=== PATIENT | female | born 1935 | race African-American/Black ===

== ENCOUNTER 2020-04-09 18:42 | Inpatient (IN) ==
[2020-04-09] MEDS ORDERED: K-DUR TAB 20 MEQ PO SCH (21:00)
[2020-04-09 21:41] LABS: BASOPHILS % (AUTO) 0.2 % (0.2-1.0); EOSINOPHILS % (AUTO) 0.3 % (0.9-2.9); HEMATOCRIT 24.3 % (36.0-47.0); HEMOGLOBIN 8.4 g/dL (12.0-16.0); LYMPHOCYTES # (AUTO) 1.2 X10^3/uL (1.3-2.9); LYMPHOCYTES % (AUTO) 14.8 % (21.0-51.0); MEAN CORPUSCULAR HEMOGLOBIN 26.9 pg (27.0-34.0); MEAN CORPUSCULAR HGB CONC 34.3 g/dL (33.0-35.0); MEAN CORPUSCULAR VOLUME 78.4 fL (80.0-100.0); MEAN PLATELET VOLUME 7.4 fL (7.4-11.0); MONOCYTES # (AUTO) 0.4 x10^3/uL (0.3-0.8); MONOCYTES % (AUTO) 5.7 % (0.0-13.0); NEUTROPHILS # (AUTO) 6.2 x10^3/uL (2.2-4.8); PLATELET COUNT 349 X10^3/uL (150.0-450.0); RED CELL DISTRIBUTION WIDTH 20.7 % (11.6-16.5); WHITE BLOOD COUNT 7.8 X10^3/uL (3.6-10.0)
[2020-04-09 21:43] LABS: CALCIUM 8.1 mg/dL (8.5-10.1); CARBON DIOXIDE 17.9 mmol/L (21-32); COR CA(FOR HYPOALB) 9.7 mg/dL (8.5-10.1); CREATININE 2.84 mg/dL (0.55-1.02); MAGNESIUM 1.6 mg/dL (1.7-2.9); TOTAL PROTEIN 6.4 g/dL (6.4-8.2)
[2020-04-09 21:46] LABS: ANISOCYTOSIS 1+; HYPOCHROMASIA SLIGHT; PLATELET MORPHOLOGY COMMENT NORMAL (NORMAL)
[2020-04-09] MEDS: NS + KCL 40 MEQ/L 1,000 ML IV SCH (22:00)
[2020-04-09] MEDS ORDERED: PHARMACY CONSULT LTC MEDICATIONS XX SCH (23:00)
[2020-04-09] MEDS: MAGNESIUM SULFATE 1 GRAM/100 mL PREMIX 1 GM/100 ML BAG IV PRN (23:10)
[2020-04-09] MEDS: K-DUR TAB 20 MEQ PO SCH (23:11)
--- NOTE | 2020-04-09 23:26 | RAD ---
HISTORYHYPOKALEMIASTUDYCHEST, 1 VIEWCOMPARISONNoneFINDINGSThe trachea is midline. The cardiac silhouette is mildly enlarged with central pulmonary vascular congestion. The lungs are clear without focal infiltrate or effusion. Moderate multilevel spondylosis. Evidence of prior cholecystectomy. Fusion hardware of the lower cervical spine.IMPRESSIONMild cardiomegaly and central pulmonary vascular congestion.Status post cholecystectomy.Electronically signed by: Jacque Parish (Apr 09, 2020 23:25:40)
[2020-04-10] MEDS: MAGNESIUM SULFATE 1 GRAM/100 mL PREMIX 1 GM/100 ML BAG IV PRN (02:30)
[2020-04-10] MEDS: K-DUR TAB 20 MEQ PO SCH ×2 (02:30→02:43)
[2020-04-10 06:22] LABS: BILIRUBIN,URINE NEGATIVE (NEGATIVE); BLOOD/HEMOGLOBIN,URINE 3+ (NEGATIVE); GLUCOSE, URINE NEGATIVE (NEGATIVE); KETONES,URINE NEGATIVE (NEGATIVE); LEUKOCYTE ESTERASE ,URINE 3+ (NEGATIVE); NITRITES,URINE NEGATIVE (NEGATIVE); PROTEIN,URINE 2+ (NEGATIVE); UROBILINOGEN,URINE NORMAL (NORMAL)
[2020-04-10 06:30] LABS: ALBUMIN 1.7 g/dL (3.4-5.0); CALCIUM 7.4 mg/dL (8.5-10.1); CARBON DIOXIDE 18.4 mmol/L (21-32); COR CA(FOR HYPOALB) 9.2 mg/dL (8.5-10.1); CREATININE 2.75 mg/dL (0.55-1.02); MAGNESIUM 2.6 mg/dL (1.7-2.9); TOTAL PROTEIN 5.6 g/dL (6.4-8.2)
[2020-04-10 06:38] LABS: EOSINOPHILS % (AUTO) 0.6 % (0.9-2.9); HEMATOCRIT 20.2 % (36.0-47.0); LYMPHOCYTES # (AUTO) 1.1 X10^3/uL (1.3-2.9); MEAN CORPUSCULAR HEMOGLOBIN 26.8 pg (27.0-34.0); MEAN PLATELET VOLUME 7.4 fL (7.4-11.0); RED BLOOD COUNT 2.56 X10^6/uL (3.5-5.4); RED CELL DISTRIBUTION WIDTH 20.7 % (11.6-16.5)
[2020-04-10 06:45] LABS: APPEARANCE,URINE HAZY (CLEAR); BACTERIA,URINE 1+ /HPF (NEGATIVE); COLOR,URINE YELLOW (YELLOW); MUCUS,URINE FEW /HPF (NEGATIVE); SQUAMOUS EPITHELIAL CELL,UR RARE /HPF (NEGATIVE)
[2020-04-10 06:54] LABS: BASOPHILS % (AUTO) 0.1 % (0.2-1.0); LYMPHOCYTES % (AUTO) 16.6 % (21.0-51.0); MEAN CORPUSCULAR HGB CONC 33.9 g/dL (33.0-35.0); MONOCYTES # (AUTO) 0.3 x10^3/uL (0.3-0.8); NEUTROPHILS # (AUTO) 5.3 x10^3/uL (2.2-4.8); NEUTROPHILS % (AUTO) 77.7 % (42.0-75.0); PLATELET COUNT 305 X10^3/uL (150.0-450.0); WHITE BLOOD COUNT 6.9 X10^3/uL (3.6-10.0)
[2020-04-10 06:57] LABS: HEMOGLOBIN 6.8 g/dL (12.0-16.0)
[2020-04-10 07:21] LABS: ANISOCYTOSIS 1+; HYPOCHROMASIA 1+; PLATELET MORPHOLOGY COMMENT NORMAL (NORMAL)
[2020-04-10 09:29] LABS: LACTIC ACID 1.5 mmol/L (0.4-2.0)
[2020-04-10 10:47] LABS: HEMATOCRIT 23.9 % (36.0-47.0); HEMOGLOBIN 8.2 g/dL (12.0-16.0)
[2020-04-10 16:36] LABS: HEMATOCRIT 20.8 % (36.0-47.0)
[2020-04-10 16:40] LABS: BILIRUBIN,URINE NEGATIVE (NEGATIVE); BLOOD/HEMOGLOBIN,URINE 4+ (NEGATIVE); GLUCOSE, URINE NEGATIVE (NEGATIVE); KETONES,URINE NEGATIVE (NEGATIVE); LEUKOCYTE ESTERASE ,URINE 3+ (NEGATIVE); NITRITES,URINE NEGATIVE (NEGATIVE); PROTEIN,URINE 2+ (NEGATIVE); UROBILINOGEN,URINE NORMAL (NORMAL)
[2020-04-10 16:55] LABS: APPEARANCE,URINE CLEAR (CLEAR); BACTERIA,URINE TRACE /HPF (NEGATIVE); COLOR,URINE YELLOW (YELLOW); SQUAMOUS EPITHELIAL CELL,UR RARE /HPF (NEGATIVE)
[2020-04-10 18:13] LABS: FREE T4 (FREE THYROXINE) 1.12 ng/dL (0.76-1.46); TSH (3RD GENERATION) 3.479 uIU/mL (0.358-3.74)
[2020-04-10] MEDS: FERROUS GLUCONATE PO SCH (20:25)
[2020-04-10] MEDS: ROCEPHIN VIAL 1 GRAM 1 G in NS 100 ML IV + SPIKE MINIBAG* 100 ML IV SCH (20:25)
[2020-04-10 20:42] VITALS: BMI 15.3
[2020-04-10] MEDS ORDERED: PATIENT'S HOME MEDICATION (Ferrous Sulfate 325 MG) PO SCH (21:00)
[2020-04-10 22:15] LABS: HEMATOCRIT 21.9 % (36.0-47.0); HEMOGLOBIN 7.5 g/dL (12.0-16.0)
[2020-04-10] MEDS: NS + KCL 40 MEQ/L 1,000 ML IV SCH (23:00)
[2020-04-11 04:26] LABS: BASOPHILS % (AUTO) 0.6 % (0.2-1.0); EOSINOPHILS % (AUTO) 0.5 % (0.9-2.9); HEMATOCRIT 21.9 % (36.0-47.0); HEMOGLOBIN 7.4 g/dL (12.0-16.0); LYMPHOCYTES # (AUTO) 1.3 X10^3/uL (1.3-2.9); LYMPHOCYTES % (AUTO) 17.4 % (21.0-51.0); MEAN CORPUSCULAR HEMOGLOBIN 26.9 pg (27.0-34.0); MEAN CORPUSCULAR HGB CONC 33.9 g/dL (33.0-35.0); MEAN CORPUSCULAR VOLUME 79.2 fL (80.0-100.0); MEAN PLATELET VOLUME 7.1 fL (7.4-11.0); MONOCYTES # (AUTO) 0.5 x10^3/uL (0.3-0.8); MONOCYTES % (AUTO) 6.9 % (0.0-13.0); NEUTROPHILS # (AUTO) 5.6 x10^3/uL (2.2-4.8); NEUTROPHILS % (AUTO) 74.6 % (42.0-75.0); PLATELET COUNT 337 X10^3/uL (150.0-450.0); RED BLOOD COUNT 2.76 X10^6/uL (3.5-5.4); RED CELL DISTRIBUTION WIDTH 20.3 % (11.6-16.5); WHITE BLOOD COUNT 7.4 X10^3/uL (3.6-10.0)
[2020-04-11 04:28] LABS: ALANINE AMINOTRANSFERASE 8 Units/L (12-78); ALBUMIN 1.9 g/dL (3.4-5.0); ALKALINE PHOSPHATASE 65 Units/L (46-116); ASPARTATE AMINO TRANSFERASE 15 Units/L (15-37); BLOOD UREA NITROGEN 29 mg/dL (7-18); CALCIUM 7.5 mg/dL (8.5-10.1); CARBON DIOXIDE 17.5 mmol/L (21-32); COR CA(FOR HYPOALB) 9.2 mg/dL (8.5-10.1); CREATININE 2.61 mg/dL (0.55-1.02); SODIUM 149 mmol/L (136-145); TOTAL PROTEIN 6.1 g/dL (6.4-8.2); eGFR NON BLACK RACES 19 (>60)
[2020-04-11 04:31] LABS: CHLORIDE 119 mmol/L (98-107)
[2020-04-11 04:44] LABS: ANISOCYTOSIS 1+; HYPOCHROMASIA 1+; PLATELET MORPHOLOGY COMMENT NORMAL (NORMAL)
[2020-04-11] MEDS: NS + KCL 40 MEQ/L 1,000 ML IV SCH ×2 (07:45→13:10)
--- NOTE | 2020-04-11 08:18 | DR.H&P ---
H&P - History & Physical for Day of: H&P Date: 04/09/20 - Chief Complaint Chief Complaint: AMS, DEHYDRATION, HYPOKALEMIA - History of Present Illness History of Present Illness: PT IS 85 BF DIRECT ADMIT FROM [place] WITH SEVERE HYPOKALEMIA, SEPSIS, DEHYDRATION, AMS. PT HAS PMH OF HTN, OA, CRF, HYPOTHYROIDISM, CHF. PT ADMITTED FOR TREATMENT OF ACUTE ILLNESS, SEPSIS - Past Surgical History Surgical History: Unknown - Social History Does patient currently use any type of tobacco product: No Have you used tobacco products in the last 12 months: No Type of Tobacco Use: None Does any household member use tobacco: No Alcohol Use: None Drug Use: None Prescription drug monitoring program results: PDMP reviewed and no concerns identified - Medications Home Medications: Penicillins Adverse Reaction (Verified 04/09/20 20:53) pineapple Adverse Reaction (Verified 04/09/20 20:53) strawberry Adverse Reaction (Verified 04/09/20 20:53) CONTINUE taking the following medications Lactobacillus rhamnosus GG [Culturelle] 1 cap PO BID 04/09/20 [History] aspirin 81 mg PO DAILY 04/09/20 [History] chlorthalidone 12.5 mg PO DAILY 04/09/20 [History] escitalopram oxalate 10 mg PO DAILY 04/09/20 [History] escitalopram oxalate [Lexapro] 10 mg PO HS 04/09/20 [History] ferrous sulfate 325 mg PO BID 04/09/20 [History] gabapentin 200 mg PO TID 04/09/20 [History] levothyroxine [Synthroid] 50 mcg PO DAILY 04/09/20 [History] lisinopril 2.5 mg PO DAILY 04/09/20 [History] megestrol 400 mg PO BID 04/09/20 [History] melatonin 5 mg PO HS PRN 04/09/20 [History] pantoprazole [Protonix] 40 mg PO DAILY 04/09/20 [History] tramadol 50 mg PO Q8H PRN 04/09/20 [History] - Review of Systems Constitutional: Weakness Eyes: No Symptoms Reported ENT: No Symptoms Reported Respiratory: Shortness of Breath Cardiovascular: Chest Pain Genitourinary: Incontinence Musculoskeletal: No Symptoms Reported Skin: No Symptoms Reported Neurological: Confusion - Physical Exam Vital Signs: Temperature 97.6 F Pulse Rate [Left Brachial] 95 Respiratory Rate 20 Blood Pressure [Left Arm] 130/63 O2 Sat by Pulse Oximetry 97 Oriented: Person Eyes: Normal Ear: Normal Nose: Normal Throat: Dry Respiratory: Diminished Throughout Cardiovascular: Bradycardia : Normal Palpation: Normal Tenderness: Normal Skin: Decreased Turgur Musculoskeletal: Right, Arm, Leg, Motor Deficit Speech Pattern: Clear, Appropriate - Assessment/Plan (1) Sepsis Status: Acute Plan: ADMIT, CRITICAL CARE. IV ATBX, BLOOD URINE CULTURE ON ADMISSION. POTASSIUM REPLACEMENT, GENTLE IV HYDRATION. CXR ON ADMISSION, VERIFY HOME MEDICATION. CONTINUOUS O2, BP AND TELEMETRY (2) Hypokalemia Status: Acute (3) Acute renal failure Status: Acute (4) Acute renal failure Status: Acute - Allergies Allergies/Adverse Reactions: Allergies Allergy/AdvReac Type Severity Reaction Status Date / Time Penicillins AdvReac Verified 04/09/20 20:53 pineapple AdvReac Verified 04/09/20 20:53 strawberry AdvReac Verified 04/09/20 20:53
[2020-04-11] MEDS: SYNTHROID 50 mcg TAB PO SCH (09:42)
[2020-04-11] MEDS: FERROUS GLUCONATE PO SCH ×2 (09:43→20:24)
[2020-04-11] MEDS: ROCEPHIN VIAL 1 GRAM 1 G in NS 100 ML IV + SPIKE MINIBAG* 100 ML IV SCH (09:43)
[2020-04-11] MEDS ORDERED: HYDROGEN PEROXIDE 3% ONE (10:54)
[2020-04-11] MEDS ORDERED: STERILE WATER IRRIGATION IR ONE (10:54)
[2020-04-11] MEDS ORDERED: BENADRYL INJ 50 MG VIAL IVP PRN (13:23)
[2020-04-11] MEDS ORDERED: TYLENOL 325 MG TAB PO PRN (13:23)
[2020-04-11] MEDS ORDERED: NS 500 ML IV 500 ML IV ONE (13:23)
--- NOTE | 2020-04-11 13:51 | RAD ---
HISTORYSOBSTUDYCHEST, 1 VIEWCOMPARISONEighteen 20TECHNIQUEAP view of the chestFINDINGSCardiac silhouette is mildly enlarged. Mediastinal contours are normal. Interface in the right upper lung is favored to be due to a skin fold. No consolidation, segmental collapse, pleural effusion or pneumothorax. Sclerosis with chronic left midshaft humeral fracture is suspected.IMPRESSIONMild cardiomegaly. No acute pulmonary process.Electronically signed by: Dominic Hightower (Apr 11, 2020 13:50:52)
[2020-04-11 14:18] LABS: HEMATOCRIT 23.2 % (36.0-47.0); HEMOGLOBIN 7.8 g/dL (12.0-16.0)
[2020-04-11] MEDS: NS 1/2 + KCL 20 MEQ/L 1,000 ML IV SCH (18:20)
[2020-04-11 22:22] LABS: HEMATOCRIT 24.4 % (36.0-47.0); HEMOGLOBIN 8.3 g/dL (12.0-16.0)
[2020-04-12 06:12] LABS: BASOPHILS % (AUTO) 0.4 % (0.2-1.0); EOSINOPHILS # (AUTO) 0.1 x10^3/uL (0.0-0.2); EOSINOPHILS % (AUTO) 1.4 % (0.9-2.9); HEMATOCRIT 27.6 % (36.0-47.0); HEMOGLOBIN 9.5 g/dL (12.0-16.0); LYMPHOCYTES # (AUTO) 1.3 X10^3/uL (1.3-2.9); MEAN CORPUSCULAR HGB CONC 34.6 g/dL (33.0-35.0); MEAN CORPUSCULAR VOLUME 81.1 fL (80.0-100.0); MEAN PLATELET VOLUME 7.1 fL (7.4-11.0); MONOCYTES # (AUTO) 0.5 x10^3/uL (0.3-0.8); MONOCYTES % (AUTO) 6.1 % (0.0-13.0); NEUTROPHILS # (AUTO) 5.6 x10^3/uL (2.2-4.8); NEUTROPHILS % (AUTO) 74.1 % (42.0-75.0); PLATELET COUNT 286 X10^3/uL (150.0-450.0); RED CELL DISTRIBUTION WIDTH 19.8 % (11.6-16.5); WHITE BLOOD COUNT 7.5 X10^3/uL (3.6-10.0)
[2020-04-12] MEDS: NS 1/2 + KCL 20 MEQ/L 1,000 ML IV SCH ×2 (06:23→20:00)
[2020-04-12 06:28] LABS: ALANINE AMINOTRANSFERASE 7 Units/L (12-78); ALBUMIN 1.9 g/dL (3.4-5.0); ALKALINE PHOSPHATASE 66 Units/L (46-116); ASPARTATE AMINO TRANSFERASE 18 Units/L (15-37); BLOOD UREA NITROGEN 29 mg/dL (7-18); CALCIUM 7.6 mg/dL (8.5-10.1); CARBON DIOXIDE 15.1 mmol/L (21-32); COR CA(FOR HYPOALB) 9.3 mg/dL (8.5-10.1); SODIUM 146 mmol/L (136-145); TOTAL PROTEIN 6.3 g/dL (6.4-8.2); eGFR NON BLACK RACES 21 (>60)
[2020-04-12 06:30] LABS: CHLORIDE 119 mmol/L (98-107)
[2020-04-12] MEDS: FERROUS GLUCONATE PO SCH ×2 (10:50→21:34)
[2020-04-12] MEDS: ROCEPHIN VIAL 1 GRAM 1 G in NS 100 ML IV + SPIKE MINIBAG* 100 ML IV SCH (10:50)
[2020-04-12] MEDS: SYNTHROID 50 mcg TAB PO SCH (10:50)
[2020-04-13 06:56] LABS: BASOPHILS % (AUTO) 0.4 % (0.2-1.0); EOSINOPHILS # (AUTO) 0.1 x10^3/uL (0.0-0.2); EOSINOPHILS % (AUTO) 1.2 % (0.9-2.9); HEMATOCRIT 25.6 % (36.0-47.0); HEMOGLOBIN 8.7 g/dL (12.0-16.0); LYMPHOCYTES # (AUTO) 1.5 X10^3/uL (1.3-2.9); LYMPHOCYTES % (AUTO) 23.1 % (21.0-51.0); MEAN CORPUSCULAR HEMOGLOBIN 27.9 pg (27.0-34.0); MEAN CORPUSCULAR HGB CONC 33.9 g/dL (33.0-35.0); MEAN CORPUSCULAR VOLUME 82.3 fL (80.0-100.0); MEAN PLATELET VOLUME 7.4 fL (7.4-11.0); MONOCYTES # (AUTO) 0.4 x10^3/uL (0.3-0.8); MONOCYTES % (AUTO) 6.5 % (0.0-13.0); NEUTROPHILS # (AUTO) 4.4 x10^3/uL (2.2-4.8); NEUTROPHILS % (AUTO) 68.8 % (42.0-75.0); PLATELET COUNT 281 X10^3/uL (150.0-450.0); RED BLOOD COUNT 3.11 X10^6/uL (3.5-5.4); RED CELL DISTRIBUTION WIDTH 19.2 % (11.6-16.5); WHITE BLOOD COUNT 6.4 X10^3/uL (3.6-10.0)
[2020-04-13 07:07] LABS: ALANINE AMINOTRANSFERASE 11 Units/L (12-78); ALBUMIN 1.8 g/dL (3.4-5.0); ALKALINE PHOSPHATASE 63 Units/L (46-116); ASPARTATE AMINO TRANSFERASE 16 Units/L (15-37); BLOOD UREA NITROGEN 25 mg/dL (7-18); CALCIUM 7.4 mg/dL (8.5-10.1); CARBON DIOXIDE 17.1 mmol/L (21-32); COR CA(FOR HYPOALB) 9.2 mg/dL (8.5-10.1); CREATININE 2.03 mg/dL (0.55-1.02); SODIUM 144 mmol/L (136-145); TOTAL PROTEIN 5.8 g/dL (6.4-8.2); eGFR NON BLACK RACES 25 (>60)
[2020-04-13 07:14] LABS: CHLORIDE 117 mmol/L (98-107)
[2020-04-13] MEDS: FERROUS GLUCONATE PO SCH ×2 (08:45→20:13)
[2020-04-13] MEDS: SYNTHROID 50 mcg TAB PO SCH (08:45)
[2020-04-13] MEDS: ROCEPHIN VIAL 1 GRAM 1 G in NS 100 ML IV + SPIKE MINIBAG* 100 ML IV SCH (08:45)
[2020-04-13] MEDS: D5W 1000 ML IV 1,000 ML IV SCH (14:46)
[2020-04-14] MEDS: D5W 1000 ML IV 1,000 ML IV SCH ×2 (01:23→12:01)
[2020-04-14 08:08] LABS: BASOPHILS % (AUTO) 0.5 % (0.2-1.0); EOSINOPHILS # (AUTO) 0.1 x10^3/uL (0.0-0.2); HEMATOCRIT 33.1 % (36.0-47.0); HEMOGLOBIN 10.9 g/dL (12.0-16.0); LYMPHOCYTES # (AUTO) 1.6 X10^3/uL (1.3-2.9); LYMPHOCYTES % (AUTO) 23.5 % (21.0-51.0); MEAN CORPUSCULAR HEMOGLOBIN 27.4 pg (27.0-34.0); MEAN CORPUSCULAR HGB CONC 32.9 g/dL (33.0-35.0); MEAN CORPUSCULAR VOLUME 83.1 fL (80.0-100.0); MEAN PLATELET VOLUME 7.1 fL (7.4-11.0); MONOCYTES # (AUTO) 0.3 x10^3/uL (0.3-0.8); MONOCYTES % (AUTO) 4.4 % (0.0-13.0); NEUTROPHILS # (AUTO) 4.7 x10^3/uL (2.2-4.8); NEUTROPHILS % (AUTO) 70.6 % (42.0-75.0); PLATELET COUNT 163 X10^3/uL (150.0-450.0); RED BLOOD COUNT 3.98 X10^6/uL (3.5-5.4); RED CELL DISTRIBUTION WIDTH 19.2 % (11.6-16.5); WHITE BLOOD COUNT 6.6 X10^3/uL (3.6-10.0)
[2020-04-14 08:17] LABS: ALANINE AMINOTRANSFERASE 13 Units/L (12-78); ALBUMIN 2.1 g/dL (3.4-5.0); ALKALINE PHOSPHATASE 80 Units/L (46-116); ASPARTATE AMINO TRANSFERASE 23 Units/L (15-37); BLOOD UREA NITROGEN 22 mg/dL (7-18); CALCIUM 7.8 mg/dL (8.5-10.1); CARBON DIOXIDE 19.5 mmol/L (21-32); CHLORIDE 110 mmol/L (98-107); COR CA(FOR HYPOALB) 9.3 mg/dL (8.5-10.1); CREATININE 1.81 mg/dL (0.55-1.02); SODIUM 139 mmol/L (136-145); TOTAL PROTEIN 6.8 g/dL (6.4-8.2); eGFR NON BLACK RACES 28 (>60)
[2020-04-14 08:25] LABS: ANISOCYTOSIS SLIGHT; PLATELET MORPHOLOGY COMMENT NORMAL (NORMAL)
[2020-04-14] MEDS: ROCEPHIN VIAL 1 GRAM 1 G in NS 100 ML IV + SPIKE MINIBAG* 100 ML IV SCH (09:46)
[2020-04-14] MEDS: SYNTHROID 50 mcg TAB PO SCH (09:46)
[2020-04-14] MEDS: FERROUS GLUCONATE PO SCH ×2 (09:46→20:39)
--- NOTE | 2020-04-14 10:51 | PCM.PROG ---
Progress Note - Progress Note for Day of Date of Exam: 04/13/20 - Subjective Subjective: MS. PUENTE IS A 85 YEAR OLD PATIENT OF . SHE WAS ADMITTED FROM THE [facility] WITH SEVERE HYPOKALEMIA, ACUTE RENAL FAILURE, SEPSIS, AND HYPOTHERMIA. SHE HAS A LARGE SACRAL DECUBITUS AND HAS BEEN PLACED ON A WOUND VAC. SHE ALSO HAS A URINARY TRACT INFECTION. SHE HAS RECEIVED ONE UNIT OF BLOOD SINCE ADMISSION DUE TO ANEMIA. TODAY, SHE IS ALERT, LYING IN BED ON MORNING ROUNDS. SHE REPORTS WEAKNESS AND PAIN TO LOWER BACK TODAY. ON EXAMINATION, HEART IS REGULAR IN RATE AND RHYTHM. BILATERAL LUNGS ARE NOTED WITH DIMINISHED LUNG SOUNDS THROUGHOUT. ABDOMEN IS ROUND, SOFT, AND NON-TENDER WITH NORMAL BOWEL SOUNDS NOTED IN ALL QUADRANTS. WOUND VAC NOTED TO SACRAL DECUBITUS. HER VITALS THIS MORNING ARE: 97.2-84-18-99%-138/68. LABS WERE OBTAINED. ABNORMAL LAB VALUES INCLUDE THE FOLLOWING: RBC 3.11, HGB 8.7, HCT 25.6, CHLORIDE 117, CARBON DIOXIDE 17.1, BUN 25, CREATININE 2.03, GLUCOSE 60, CALCIUM 7.4, ALT 11, TOTAL PROTEIN 5.8, ALBUMIN 1.8. URINE CULTURE REPORTS GROWTH OF CITROBACTER. BLOOD AND STOOL CULTURES ARE PENDING. SHE IS CURRENTLY RECEIVING ROCEPHIN 1G IV DAILY. WE WILL CHANGE HER IV FLUIDS TO D5W AT 60 ML/HR TODAY. OTHERWISE, WE PLAN TO FOLLOW UP WITH AM LABS AND CONTINUE TO MONITOR. - Past Medical Family Social History Past Med/Fam/Surg Hx: No changes since H&P Allergies: Allergies Penicillins Adverse Reaction (Verified 04/09/20 20:53) pineapple Adverse Reaction (Verified 04/09/20 20:53) strawberry Adverse Reaction (Verified 04/09/20 20:53) - Review of Systems ROS: No change since H&P - Vital Signs and I&O's Vital Signs: Temperature 97.8 F Pulse Rate [Left Brachial] 90 Respiratory Rate 18 Blood Pressure [Right Arm] 138/77 Blood Pressure [Left Arm] 139/73 O2 Sat by Pulse Oximetry 98 Intake and Output: Intake & Output 04/11/20 04/12/20 04/13/20 04/14/20 11:59 11:59 11:59 11:59 Intake Total 360 / 360 1706 / 1706 1870 / 1870 750 / 750 Output Total 350 / 350 650 / 650 975 / 975 1025 / 1025 Balance 1056 / 1056 895 / 895 -275 / -275 - Physical Exam Oriented: Person Eyes: Normal Ear: Normal Nose: Normal Throat: Dry Respiratory: Diminished Cardiovascular: Normal : Normal Auscultation: Bowel Sounds: Normal Palpation: Normal Tenderness: Normal Skin: Decreased Turgur, Wound (SACRAL WOUND WITH WOUND VAC ) Musculoskeletal: Right, Arm, Leg, Motor Deficit Speech Pattern: Clear, Appropriate - Laboratory and Diagnostics Result Diagrams: 04/14/20 07:55 04/14/20 07:55 Labs: 04/12/20 09:40 Stool Stool Culture - Final 04/12/20 09:40 Stool - Final 04/10/20 08:54 Blood Blood Culture - Final Enterococcus Faecalis 04/10/20 05:59 Urine,Clean Catch Urine Culture - Final Citrobacter Species 04/10/20 08:42 Blood Blood Culture - Preliminary Laboratory WBC 6.6 X10^3/uL (3.6-10.0) 04/14/20 07:55 RBC 3.98 X10^6/uL (3.5-5.4) 04/14/20 07:55 Hgb 10.9 g/dL (12.0-16.0) L D 04/14/20 07:55 Hct 33.1 % (36.0-47.0) L 04/14/20 07:55 MCV 83.1 fL (80.0-100.0) 04/14/20 07:55 MCH 27.4 pg (27.0-34.0) 04/14/20 07:55 MCHC 32.9 g/dL (33.0-35.0) L 04/14/20 07:55 RDW 19.2 % (11.6-16.5) H 04/14/20 07:55 Plt Count 163 X10^3/uL (150.0-450.0) 04/14/20 07:55 Plt Count Comment Adequate (ADEQUATE) 04/14/20 07:55 MPV 7.1 fL (7.4-11.0) L 04/14/20 07:55 Neut % (Auto) 70.6 % (42.0-75.0) 04/14/20 07:55 Lymph % (Auto) 23.5 % (21.0-51.0) 04/14/20 07:55 [place] % (Auto) 4.4 % (0.0-13.0) 04/14/20 07:55 Eos % (Auto) 1.0 % (0.9-2.9) 04/14/20 07:55 Baso % (Auto) 0.5 % (0.2-1.0) 04/14/20 07:55 Neut # (Auto) 4.7 x10^3/uL (2.2-4.8) 04/14/20 07:55 Lymph # (Auto) 1.6 X10^3/uL (1.3-2.9) 04/14/20 07:55 [place] # (Auto) 0.3 x10^3/uL (0.3-0.8) 04/14/20 07:55 Eos # (Auto) 0.1 x10^3/uL (0.0-0.2) 04/14/20 07:55 Baso # (Auto) 0.0 X10^3/uL (0.0-0.1) 04/14/20 07:55 Absolute Nucleated RBC 0.1 /100WBC 04/14/20 07:55 Plt Clumps, EDTA Few 04/14/20 07:55 Plt Morphology Comment Normal (NORMAL) 04/14/20 07:55 RBC Morphology Abnormal (NORMAL) A 04/14/20 07:55 Hypochromasia 1+ A 04/11/20 03:51 Anisocytosis Slight A 04/14/20 07:55 Sodium 139 mmol/L (136-145) 04/14/20 07:55 Corrected Sodium TNP 04/14/20 07:55 Potassium 4.5 mmol/L (3.5-5.1) 04/14/20 07:55 Chloride 110 mmol/L (98-107) H 04/14/20 07:55 Carbon Dioxide 19.5 mmol/L (21-32) L 04/14/20 07:55 BUN 22 mg/dL (7-18) H 04/14/20 07:55 Creatinine 1.81 mg/dL (0.55-1.02) H 04/14/20 07:55 Est GFR (MDRD) Af Amer 34 (>60) L 04/14/20 07:55 Est GFR (MDRD) Non-Af 28 (>60) L 04/14/20 07:55 Glucose 74 mg/dL (65-99) 04/14/20 07:55 Lactic Acid 1.5 mmol/L (0.4-2.0) 04/10/20 08:42 Calcium 7.8 mg/dL (8.5-10.1) L 04/14/20 07:55 Corrected Calcium 9.3 mg/dL (8.5-10.1) 04/14/20 07:55 Magnesium 2.6 mg/dL (1.7-2.9) 04/10/20 05:47 Iron 38 ug/dL (50-175) L 04/10/20 08:42 Transferrin 53 mg/dL (202-364) L 04/10/20 08:42 Ferritin 883 ng/mL (8-252) H 04/10/20 08:42 Total Bilirubin 0.30 mg/dL (0.2-1.0) 04/14/20 07:55 AST 23 Units/L (15-37) 04/14/20 07:55 ALT 13 Units/L (12-78) 04/14/20 07:55 Alkaline Phosphatase 80 Units/L (46-116) 04/14/20 07:55 Total Protein 6.8 g/dL (6.4-8.2) 04/14/20 07:55 Albumin 2.1 g/dL (3.4-5.0) L 04/14/20 07:55 Globulin 4.7 g/dL (2.5-4.5) H 04/14/20 07:55 Albumin/Globulin Ratio 0.4 Ratio (1.1-2.1) L 04/14/20 07:55 Vitamin B12 698 pg/mL (193-986) 04/10/20 08:42 Folate 4.2 ng/mL (>8.6) L 04/10/20 08:42 Free T4 1.12 ng/dL (0.76-1.46) 04/10/20 05:47 TSH 3rd Generation 3.479 uIU/mL (0.358-3.74) 04/10/20 05:47 Specimen Type Clean catch urine 04/10/20 16:00 Urine Color Yellow (YELLOW) 04/10/20 16:00 Urine Appearance Clear (CLEAR) 04/10/20 16:00 Urine pH 5.0 (5.0 - 8.0) 04/10/20 16:00 Ur Specific [place] 1.030 (1.000-1.030) 04/10/20 16:00 Urine Protein 2+ (NEGATIVE) 04/10/20 16:00 Urine Glucose (UA) Negative (NEGATIVE) 04/10/20 16:00 Urine Ketones Negative (NEGATIVE) 04/10/20 16:00 Urine Occult Blood 4+ (NEGATIVE) 04/10/20 16:00 Urine Nitrite Negative (NEGATIVE) 04/10/20 16:00 Urine Bilirubin Negative (NEGATIVE) 04/10/20 16:00 Urine Urobilinogen Normal (NORMAL) 04/10/20 16:00 Ur Leukocyte Esterase 3+ (NEGATIVE) 04/10/20 16:00 Urine RBC 3-5 /HPF (0-3) A 04/10/20 16:00 Urine WBC 3-5 /HPF (0-5) 04/10/20 16:00 Ur Squamous Epith Cells Rare /HPF (NEGATIVE) 04/10/20 16:00 Urine Bacteria Trace /HPF (NEGATIVE) 04/10/20 16:00 Urine Mucus Few /HPF (NEGATIVE) 04/10/20 05:59 Ur Culture Indicated? No/not indicated 04/10/20 16:00 Stool Description 10g,green,semisolid 04/12/20 09:40 Stl Occult Blood (IFOB) Positive (NEGATIVE) A 04/12/20 09:40 Stool for White Cells Positive (NEGATIVE) A 04/12/20 09:40 Stl C. diff Tox B Gene Negative (NEGATIVE) 04/12/20 09:40 Stl C. diff 027-NAP1-BI Negative (NEGATIVE) 04/12/20 09:40 Stool H. pylori Ag Negative (NEGATIVE) 04/12/20 09:40 Blood Type O POSITIVE 04/10/20 07:34 Antibody Screen Negative 04/10/20 07:34 Crossmatch See Detail 04/10/20 07:34 - Plan (1) Sepsis Status: Acute Qualifiers: Sepsis type: sepsis due to unspecified organism Sepsis acute organ dysfunc tion status: with acute organ dysfunction Severe sepsis acute organ dysfu nction type: acute renal failure Acute renal failure type: unspecified Severe sepsis shock status: unspecified Qualified Code(s): A41.9 - Sepsis, unspecified organism; R65.20 - Severe sepsis without septic shock; N17.9 - Acute kidney failure, unspecified Plan: CRITICAL CARE. IV ATBX, BLOOD URINE CULTURE ON ADMISSION. POTASSIUM REPLACEMENT, GENTLE IV HYDRATION. CXR ON ADMISSION, VERIFY HOME MEDICATION. CONTINUOUS O2, BP AND TELEMETRY (2) Acute renal failure Status: Acute Qualifiers: Acute renal failure type: unspecified Qualified Code(s): N17.9 - Acute kidney failure, unspecified (3) Decubitus ulcer Status: Acute Qualifiers: Pressure injury location: sacral region Pressure injury stage: unspecified pressure injury stage Qualified Code(s): L89.159 - Pressure ulcer of sacral region, unspecified stage (4) Anemia Status: Acute Qualifiers: Anemia type: iron deficiency Iron deficiency anemia type: unspecified iron deficiency Qualified Code(s): D50.9 - Iron deficiency anemia, unspecified
[2020-04-14] MEDS ORDERED: VANCOMYCIN HCL 500 MG in D5W 100 ML IV 100 ML IV SCH (12:00)
[2020-04-14] MEDS ORDERED: RIFADIN PO SCH (12:00)
[2020-04-14] MEDS ORDERED: VANCOMYCIN HCL ONE (12:16)
[2020-04-14] MEDS ORDERED: D5W 250 ML IV 250 ML IV ONE (12:17)
[2020-04-14] MEDS: RIFADIN PO SCH (14:38)
--- NOTE | 2020-04-14 22:57 | PCM.PROG ---
Progress Note - Progress Note for Day of Date of Exam: 04/14/20 - Subjective Subjective: MS. PUENTE IS A 85 YEAR OLD PATIENT OF . SHE WAS ADMITTED FROM THE [facility] WITH SEVERE HYPOKALEMIA, ACUTE RENAL FAILURE, SEPSIS, AND HYPOTHERMIA. SHE HAS A LARGE SACRAL DECUBITUS AND HAS BEEN PLACED ON A WOUND VAC. SHE ALSO HAS A URINARY TRACT INFECTION. SHE HAS RECEIVED ONE UNIT OF BLOOD SINCE ADMISSION DUE TO ANEMIA. TODAY, SHE IS ALERT, LYING IN BED ON MORNING ROUNDS. SHE REPORTS WEAKNESS AND PAIN TO LOWER BACK TODAY. ON EXAMINATION, HEART IS REGULAR IN RATE AND RHYTHM. BILATERAL LUNGS ARE NOTED WITH DIMINISHED LUNG SOUNDS THROUGHOUT. ABDOMEN IS ROUND, SOFT, AND NON-TENDER WITH NORMAL BOWEL SOUNDS NOTED IN ALL QUADRANTS. WOUND VAC NOTED TO SACRAL DECUBITUS. HER VITALS THIS MORNING ARE: 97.8-90-18-98%-138/77. LABS WERE OBTAINED. ABNORMAL LAB VALUES INCLUDE THE FOLLOWING: HGB 10.9, HCT 33.1, CHLORIDE 110, CARBON DIOIXDE 19.5, CREATININE 1.81, CALCIUM 7.8, ALBUMIN 2.1. URINE CULTURE REPORTS GROWTH OF CITROBACTER. BLOOD CULTURES ARE COMPLETE AND REPORT GROWTH OF ENTEROCOCCUS FAECALIS. SHE IS CURRENTLY RECEIVING ROCEPHIN 1G IV DAILY. TODAY, WE WILL ADD VANCOMYCIN IV AND RIFAMPIN PO. PHARMACY TO DOSE. OTHERWISE, WE WILL CONTINUE WITH CURRENT PLAN OF CARE. WE PLAN TO FOLLOW UP WITH AM LABS AND CONTINUE TO MONITOR. - Past Medical Family Social History Past Med/Fam/Surg Hx: No changes since H&P Allergies: Allergies Penicillins Adverse Reaction (Verified 04/09/20 20:53) pineapple Adverse Reaction (Verified 04/09/20 20:53) strawberry Adverse Reaction (Verified 04/09/20 20:53) - Review of Systems ROS: No change since H&P - Vital Signs and I&O's Vital Signs: Temperature 97.6 F Pulse Rate [Left Brachial] 93 Respiratory Rate 20 Blood Pressure [Right Arm] 136/65 Blood Pressure [Left Arm] 120/70 O2 Sat by Pulse Oximetry 97 Intake and Output: Intake & Output 04/12/20 04/13/20 04/14/20 04/15/20 11:59 11:59 11:59 11:59 Intake Total 1706 / 1706 1870 / 1870 750 / 750 240 / 240 Output Total 650 / 650 975 / 975 1025 / 1025 450 / 450 Balance 1056 / 1056 895 / 895 -275 / -275 -210 / -210 - Physical Exam Oriented: Person Eyes: Normal Ear: Normal Nose: Normal Throat: Dry Respiratory: Diminished Cardiovascular: Normal : Normal Auscultation: Bowel Sounds: Normal Palpation: Normal Tenderness: Normal Skin: Decreased Turgur, Wound (SACRAL WOUND WITH WOUND VAC ) Musculoskeletal: Right, Arm, Leg, Motor Deficit Speech Pattern: Clear, Appropriate - Laboratory and Diagnostics Result Diagrams: 04/14/20 07:55 04/14/20 07:55 Labs: 04/12/20 09:40 Stool Stool Culture - Final 04/12/20 09:40 Stool - Final 04/10/20 08:54 Blood Blood Culture - Final Enterococcus Faecalis 04/10/20 05:59 Urine,Clean Catch Urine Culture - Final Citrobacter Species 04/10/20 08:42 Blood Blood Culture - Preliminary Laboratory WBC 6.6 X10^3/uL (3.6-10.0) 04/14/20 07:55 RBC 3.98 X10^6/uL (3.5-5.4) 04/14/20 07:55 Hgb 10.9 g/dL (12.0-16.0) L D 04/14/20 07:55 Hct 33.1 % (36.0-47.0) L 04/14/20 07:55 MCV 83.1 fL (80.0-100.0) 04/14/20 07:55 MCH 27.4 pg (27.0-34.0) 04/14/20 07:55 MCHC 32.9 g/dL (33.0-35.0) L 04/14/20 07:55 RDW 19.2 % (11.6-16.5) H 04/14/20 07:55 Plt Count 163 X10^3/uL (150.0-450.0) 04/14/20 07:55 Plt Count Comment Adequate (ADEQUATE) 04/14/20 07:55 MPV 7.1 fL (7.4-11.0) L 04/14/20 07:55 Neut % (Auto) 70.6 % (42.0-75.0) 04/14/20 07:55 Lymph % (Auto) 23.5 % (21.0-51.0) 04/14/20 07:55 [place] % (Auto) 4.4 % (0.0-13.0) 04/14/20 07:55 Eos % (Auto) 1.0 % (0.9-2.9) 04/14/20 07:55 Baso % (Auto) 0.5 % (0.2-1.0) 04/14/20 07:55 Neut # (Auto) 4.7 x10^3/uL (2.2-4.8) 04/14/20 07:55 Lymph # (Auto) 1.6 X10^3/uL (1.3-2.9) 04/14/20 07:55 [place] # (Auto) 0.3 x10^3/uL (0.3-0.8) 04/14/20 07:55 Eos # (Auto) 0.1 x10^3/uL (0.0-0.2) 04/14/20 07:55 Baso # (Auto) 0.0 X10^3/uL (0.0-0.1) 04/14/20 07:55 Absolute Nucleated RBC 0.1 /100WBC 04/14/20 07:55 Plt Clumps, EDTA Few 04/14/20 07:55 Plt Morphology Comment Normal (NORMAL) 04/14/20 07:55 RBC Morphology Abnormal (NORMAL) A 04/14/20 07:55 Hypochromasia 1+ A 04/11/20 03:51 Anisocytosis Slight A 04/14/20 07:55 Sodium 139 mmol/L (136-145) 04/14/20 07:55 Corrected Sodium TNP 04/14/20 07:55 Potassium 4.5 mmol/L (3.5-5.1) 04/14/20 07:55 Chloride 110 mmol/L (98-107) H 04/14/20 07:55 Carbon Dioxide 19.5 mmol/L (21-32) L 04/14/20 07:55 BUN 22 mg/dL (7-18) H 04/14/20 07:55 Creatinine 1.81 mg/dL (0.55-1.02) H 04/14/20 07:55 Est GFR (MDRD) Af Amer 34 (>60) L 04/14/20 07:55 Est GFR (MDRD) Non-Af 28 (>60) L 04/14/20 07:55 Glucose 74 mg/dL (65-99) 04/14/20 07:55 Lactic Acid 1.5 mmol/L (0.4-2.0) 04/10/20 08:42 Calcium 7.8 mg/dL (8.5-10.1) L 04/14/20 07:55 Corrected Calcium 9.3 mg/dL (8.5-10.1) 04/14/20 07:55 Magnesium 2.6 mg/dL (1.7-2.9) 04/10/20 05:47 Iron 38 ug/dL (50-175) L 04/10/20 08:42 Transferrin 53 mg/dL (202-364) L 04/10/20 08:42 Ferritin 883 ng/mL (8-252) H 04/10/20 08:42 Total Bilirubin 0.30 mg/dL (0.2-1.0) 04/14/20 07:55 AST 23 Units/L (15-37) 04/14/20 07:55 ALT 13 Units/L (12-78) 04/14/20 07:55 Alkaline Phosphatase 80 Units/L (46-116) 04/14/20 07:55 Total Protein 6.8 g/dL (6.4-8.2) 04/14/20 07:55 Albumin 2.1 g/dL (3.4-5.0) L 04/14/20 07:55 Globulin 4.7 g/dL (2.5-4.5) H 04/14/20 07:55 Albumin/Globulin Ratio 0.4 Ratio (1.1-2.1) L 04/14/20 07:55 Vitamin B12 698 pg/mL (193-986) 04/10/20 08:42 Folate 4.2 ng/mL (>8.6) L 04/10/20 08:42 Free T4 1.12 ng/dL (0.76-1.46) 04/10/20 05:47 TSH 3rd Generation 3.479 uIU/mL (0.358-3.74) 04/10/20 05:47 Specimen Type Clean catch urine 04/10/20 16:00 Urine Color Yellow (YELLOW) 04/10/20 16:00 Urine Appearance Clear (CLEAR) 04/10/20 16:00 Urine pH 5.0 (5.0 - 8.0) 04/10/20 16:00 Ur Specific [place] 1.030 (1.000-1.030) 04/10/20 16:00 Urine Protein 2+ (NEGATIVE) 04/10/20 16:00 Urine Glucose (UA) Negative (NEGATIVE) 04/10/20 16:00 Urine Ketones Negative (NEGATIVE) 04/10/20 16:00 Urine Occult Blood 4+ (NEGATIVE) 04/10/20 16:00 Urine Nitrite Negative (NEGATIVE) 04/10/20 16:00 Urine Bilirubin Negative (NEGATIVE) 04/10/20 16:00 Urine Urobilinogen Normal (NORMAL) 04/10/20 16:00 Ur Leukocyte Esterase 3+ (NEGATIVE) 04/10/20 16:00 Urine RBC 3-5 /HPF (0-3) A 04/10/20 16:00 Urine WBC 3-5 /HPF (0-5) 04/10/20 16:00 Ur Squamous Epith Cells Rare /HPF (NEGATIVE) 04/10/20 16:00 Urine Bacteria Trace /HPF (NEGATIVE) 04/10/20 16:00 Urine Mucus Few /HPF (NEGATIVE) 04/10/20 05:59 Ur Culture Indicated? No/not indicated 04/10/20 16:00 Stool Description 10g,green,semisolid 04/12/20 09:40 Stl Occult Blood (IFOB) Positive (NEGATIVE) A 04/12/20 09:40 Stool for White Cells Positive (NEGATIVE) A 04/12/20 09:40 Stl C. diff Tox B Gene Negative (NEGATIVE) 04/12/20 09:40 Stl C. diff 027-NAP1-BI Negative (NEGATIVE) 04/12/20 09:40 Stool H. pylori Ag Negative (NEGATIVE) 04/12/20 09:40 Blood Type O POSITIVE 04/10/20 07:34 Antibody Screen Negative 04/10/20 07:34 Crossmatch See Detail 04/10/20 07:34 - Plan (1) Sepsis Status: Acute Qualifiers: Sepsis type: sepsis due to unspecified organism Sepsis acute organ dysfunction status: with acute organ dysfunction Severe sepsis acute organ dysfunction type: acute renal failure Acute renal failure type: unspecified Severe sepsis shock status: unspecified Qualified Code(s): A41.9 - Sepsis, unspecified organism; R65.20 - Severe sepsis without septic shock; N17.9 - Acute kidney failure, unspecified Plan: CRITICAL CARE. IV ATBX, BLOOD URINE CULTURE ON ADMISSION. POTASSIUM REPLACEMENT, GENTLE IV HYDRATION. CXR ON ADMISSION, VERIFY HOME MEDICATION. CONTINUOUS O2, BP AND TELEMETRY (2) Acute renal failure Status: Acute Qualifiers: Acute renal failure type: unspecified Qualified Code(s): N17.9 - Acute kidney failure, unspecified (3) Decubitus ulcer Status: Acute Qualifiers: Pressure injury location: sacral region Pressure injury stage: unspecified pressure injury stage Qualified Code(s): L89.159 - Pressure ulcer of sacral region, unspecified stage (4) Anemia Status: Acute Qualifiers: Anemia type: iron deficiency Iron deficiency anemia type: unspecified iron deficiency Qualified Code(s): D50.9 - Iron deficiency anemia, unspecified
[2020-04-15] MEDS: D5W 1000 ML IV 1,000 ML IV SCH ×3 (03:00→14:24)
[2020-04-15 06:59] LABS: BASOPHILS % (AUTO) 0.3 % (0.2-1.0); EOSINOPHILS # (AUTO) 0.1 x10^3/uL (0.0-0.2); HEMATOCRIT 33.9 % (36.0-47.0); HEMOGLOBIN 11.4 g/dL (12.0-16.0); LYMPHOCYTES # (AUTO) 1.4 X10^3/uL (1.3-2.9); LYMPHOCYTES % (AUTO) 19.4 % (21.0-51.0); MEAN CORPUSCULAR HEMOGLOBIN 27.6 pg (27.0-34.0); MEAN CORPUSCULAR HGB CONC 33.7 g/dL (33.0-35.0); MEAN CORPUSCULAR VOLUME 81.7 fL (80.0-100.0); MEAN PLATELET VOLUME 7.4 fL (7.4-11.0); MONOCYTES # (AUTO) 0.5 x10^3/uL (0.3-0.8); MONOCYTES % (AUTO) 6.5 % (0.0-13.0); NEUTROPHILS # (AUTO) 5.4 x10^3/uL (2.2-4.8); NEUTROPHILS % (AUTO) 72.8 % (42.0-75.0); PLATELET COUNT 296 X10^3/uL (150.0-450.0); RED BLOOD COUNT 4.15 X10^6/uL (3.5-5.4); WHITE BLOOD COUNT 7.4 X10^3/uL (3.6-10.0)
[2020-04-15 07:03] LABS: ALANINE AMINOTRANSFERASE 14 Units/L (12-78); ALBUMIN 2.1 g/dL (3.4-5.0); ALKALINE PHOSPHATASE 77 Units/L (46-116); ASPARTATE AMINO TRANSFERASE 25 Units/L (15-37); BLOOD UREA NITROGEN 20 mg/dL (7-18); CALCIUM 7.9 mg/dL (8.5-10.1); CARBON DIOXIDE 17.8 mmol/L (21-32); CHLORIDE 106 mmol/L (98-107); COR CA(FOR HYPOALB) 9.4 mg/dL (8.5-10.1); CREATININE 1.61 mg/dL (0.55-1.02); SODIUM 136 mmol/L (136-145); TOTAL PROTEIN 6.6 g/dL (6.4-8.2); eGFR NON BLACK RACES 32 (>60)
[2020-04-15] MEDS: FERROUS GLUCONATE PO SCH (09:16)
[2020-04-15] MEDS: RIFADIN PO SCH (09:16)
[2020-04-15] MEDS: SYNTHROID 50 mcg TAB PO SCH (09:16)
[2020-04-15] MEDS: ROCEPHIN VIAL 1 GRAM 1 G in NS 100 ML IV + SPIKE MINIBAG* 100 ML IV SCH (09:17)
--- NOTE | 2020-04-15 10:04 | RAD ---
HISTORYHX CHF, COUGHSTUDYCHEST, 1 [id number] trachea is midline. The cardiac silhouette is stable. The lungs are clear without focal infiltrate or effusion. The bony thorax is unremarkable.IMPRESSIONNo acute cardiopulmonary disease.Electronically signed by: ZOIE FLORES (Apr 15, 2020 10:03:56)
[2020-04-15] MEDS ORDERED: XYLOCAINE 1 % (PLAIN) ONE (12:39)
--- NOTE | 2020-04-15 13:43 | RAD ---
HISTORYPICC LINE PLACEMENTSTUDYCHEST, 1 VIEWCOMPARISONSame day radiographTECHNIQUEAP view of the chestFINDINGSPatient rotation limits evaluation. Placement of left upper extremity PICC line which terminates the left brachiocephalic vein. There is silhouetting of the left hemidiaphragm. No definite pneumothorax.IMPRESSIONRecommend advancement of PICC line approximately 7 cm. New silhouetting of the left hemidiaphragm suspicious for a left base consolidation.Electronically signed by: Dominic Hightower (Apr 15, 2020 13:42:23)
--- NOTE | 2020-04-15 14:13 | DR.UPDATE ---
H&P Update History and Physical Update: History and Physical reviewed and patient examined. Changes noted: NO Yes with the following:will place picc line as ordered H&P Reviewed: Yes Patient was examined?: Yes Procedures (ALL) - Central Line Placement PCM.CLCO: verbal consent Time out performed: Yes Patient placed pm monitor/pulse ox: Yes prep: mask, gown, gloves, other Centrial line prep: chlorhexidine scrub, sterile drapes applied Local anesthsia used: lidocane 1% Ultrasound used for placement: Yes (right basilc attemprted x2 unsuccessfull left basilic attempted x2 ) Central line lumen ininserted: double (5.5 fr picc inserted trimmed length 35 cm , 30 cm inserted, 5 cm exposed) Post procedure: good blood return (unable to aspirate blood from catheter), all ports aspirated, flushed,capped, sterile dressing applied Post procedure xray: tip oc catheter in good position (7cm advancement recommended, but unable to advance further without kinking) Patient tolerated procedure: Yes Complications: none
[2020-04-15 16:23] VITALS: BP 123/60
== END 2020-04-15 17:55 | disposition home health service (06) | DRG 871 ==
LOC: MED/SURG 20:25
PROVIDERS: ADMIT Internal Medicine; ATTEND Internal Medicine
DX: A41.81 Sepsis due to Enterococcus; I13.0 Hypertensive heart and chronic kidney disease with heart failure and stage 1 through stage 4 chronic kidney disease, or unspecified chronic kidney disease; R26.81 Unsteadiness on feet; B96.89 Other specified bacterial agents as the cause of diseases classified elsewhere; N18.9 Chronic kidney disease, unspecified; L89.154 Pressure ulcer of sacral region, stage 4; D50.9 Iron deficiency anemia, unspecified; R41.82 Altered mental status, unspecified; E87.8 Other disorders of electrolyte and fluid balance, not elsewhere classified; R13.10 Dysphagia, unspecified; R65.20 Severe sepsis without septic shock; N39.0 Urinary tract infection, site not specified; N17.9 Acute kidney failure, unspecified; M19.90 Unspecified osteoarthritis, unspecified site; I50.9 Heart failure, unspecified
CPT/HCPCS: 36415; 36430; 71010; 71045; 80053; 81001; 82270; 82607; 82728; 82746; 83540; 83605; 83630; 83735; 84132; 84439; 84443; 84466; 85014; 85018; 85025; 86850; 86900; 86901; 86922; 87040; 87045; 87077; 87086; 87088; 87186; 87338; 87427; 87449; 87493; 87899; 92610; 97110; 97163; 97167; 97535; A4216; A4217; A4222; J0696; J3370; J3475; J7030; J7040; J7050; J7060; P9016